=== PATIENT | female | born 1980 | race Caucasian/White ===

== ENCOUNTER 2016-11-29 17:16 | Emergency (ER) | payer OTHER ==
[2016-11-29 17:26] VITALS: PULSE 79; RESP 18; TEMP 98.4; O2SAT 99
--- NOTE | 2016-11-29 18:08 | C.PDOC ---
History Of Present Illness 36 y/o female presents to the ED with complains of bilateral eye irritation after petting a friends dog today. Pt states her eyes became itchy and watery soon after petting the dog, has not had similar symptoms in the past. Denies chest pain, SOB, throat swelling or any other complaints. 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 Chief Complaint (Nursing): Allergic Reaction History Per: Patient History/Exam Limitations: no limitations Onset/Duration Of Symptoms: Hrs Current Symptoms Are (Timing): Still Present Associated Symptoms: Itching Severity: Mild Recent travel outside of the [place]: No Past Medical History Reviewed: Historical Data, Nursing Documentation, Vital Signs Vital Signs: Last Vital Signs Temp 98.4 F 11/29/16 17:21 Pulse 79 11/29/16 17:21 Resp 18 11/29/16 17:21 BP Pulse Ox 99 11/29/16 18:09 Family History: States: Unknown Family Hx - Social History Hx Tobacco Use: No Hx Alcohol Use: Yes Hx Substance Use: No - Immunization History Hx Tetanus Toxoid Vaccination: No Hx Influenza Vaccination: No Hx Pneumococcal Vaccination: No Review Of Systems Except As Marked, All Systems Reviewed And Found Negative. Eyes: Positive for: Other (itchy watery eyes). Negative for: Vision Change ENT: Negative for: Throat Swelling Cardiovascular: Negative for: Chest Pain Respiratory: Negative for: Shortness of Breath Physical Exam - Physical Exam Appears: Non-toxic, No Acute Distress Skin: Warm, Dry, No Rash Head: Atraumatic, Normacephalic Eye(s): bilateral: PERRL, EOMI, Other (minimal redness and tearing) Cardiovascular: Rhythm Regular, No Murmur Respiratory: Normal Breath Sounds, No Accessory Muscle Use, No Rales, No Rhonchi , No Wheezing Extremity: Normal ROM Extremity: Bilateral: Atraumatic Neurological/Psych: Oriented x3, Normal Speech ED Course And Treatment O2 Sat by Pulse Oximetry: 99 (room air) Pulse Ox Interpretation: Normal Disposition - Disposition Referrals: [facility] [Outside] [facility] [Outside] Disposition: HOME/ ROUTINE Disposition Time: 18:10 Condition: GOOD Additional Instructions: Thank you for letting us take care of you today. Your provider was Dr. Acuna. You were treated for allergic reaction. The emergency medical care you received today was directed at your acute symptoms. If you were prescribed any medication, please fill it and take as directed. It may take several days for your symptoms to resolve. Return to the Emergency Department if your symptoms worsen, do not improve, or if you have any other problems. Please contact your doctor or call one of the physicians/clinics you have been referred to that are listed on the Patient Visit Information form that is included in your discharge packet. Bring any paperwork you were given at discharge with you along with any medications you are taking to your follow up visit. Our treatment cannot replace ongoing medical care by a primary care provider (PCP) outside of the emergency department. Thank you for allowing the [email or web address] team to be part of your care today. Follow up in the clinic in 3-4 days for outpatient care. Prescriptions: predniSONE [Prednisone] 40 mg PO DAILY #10 tab Instructions: General Allergic Reaction (ED) - Clinical Impression Clinical Impression: Allergic urticaria - Scribe Statement The provider has reviewed the documentation as recorded by the Tao Aragon Provider Attestation: All medical record entries made by the Tao were at my direction and personally dictated by me. I have reviewed the chart and agree that the record accurately reflects my personal performance of the history, physical exam, medical decision making, and the department course for this patient. I have also personally directed, reviewed, and agree with the discharge instructions and disposition.
== END 2016-11-29 18:03 | disposition home or self-care (01) ==
LOC: C.ER 17:16
DX: L50.0 Allergic urticaria (principal)

== ENCOUNTER 2017-04-09 00:46 | Emergency (ER) | payer SELFPAY ==
[2017-04-09 01:05] VITALS: RESP 20
[2017-04-09] MEDS ORDERED: Sodium Chloride 0.9% 1,000 ML IV ONE (01:26)
[2017-04-09] MEDS ORDERED: Sodium Chloride 0.9% 1,000 ML ONE (01:38)
[2017-04-09 01:40] LABS: BASO # 0.1 K/uL (0.0-0.2); BASO % 0.6 % (0.0-2.0); EOS # 0.2 K/uL (0.0-0.7); EOS % 1.3 % (0.0-4.0); HEMATOCRIT 39.7 % (34.0-47.0); LYMPH # 1.4 K/uL (1.0-4.3); LYMPH % 11.8 % (20.0-40.0); MEAN CELL VOLUME 85.3 fL (81.0-99.0); MEAN CORPUSCULAR HEMOGLOBIN 28.6 pg (27.0-31.0); MEAN CORPUSCULAR HGB CONC 33.5 g/dL (33.0-37.0); MEAN PLATELET VOLUME 8.5 fL (7.2-11.7); MONO # 0.5 K/uL (0.0-0.8); MONO % 4.5 % (0.0-10.0); RED CELL DISTRIBUTION WIDTH 13.8 % (11.5-14.5); WHITE BLOOD COUNT 11.8 K/uL (4.8-10.8)
[2017-04-09 01:43] LABS: URINE BILIRUBIN NEGATIVE (NEGATIVE); URINE BLOOD NEGATIVE (NEGATIVE); URINE COLOR Yellow (YELLOW); URINE GLUCOSE (UA) NORMAL (Normal); URINE KETONE NEGATIVE (NEGATIVE); URINE LEUKOCYTE ESTERASE NEG Leu/uL (Negative); URINE PROTEIN NEGATIVE (NEGATIVE); URINE UROBILINOGEN NORMAL mg/dL (0.2-1.0); WBC URINE 3 /hpf (0-5)
[2017-04-09 01:48] LABS: CHLORIDE 97 mmol/L (98-107); POTASSIUM 3.6 mmol/L (3.6-5.2); SODIUM 135 mmol/L (132-148)
[2017-04-09 01:50] LABS: BILIRUBIN,TOTAL 0.8 mg/dL (0.2-1.3); CARBON DIOXIDE 24 mmol/L (22-30); GFR AFRICAN-AMERICAN > 60
[2017-04-09 01:51] LABS: ALB/GLOB RATIO 1.1 (1.0-2.1); ALKALINE PHOSPHATASE 117 U/L (38-126); ALT/SGPT 105 U/L (9-52); AST/SGOT 56 U/L (14-36); BLOOD UREA NITROGEN 9 mg/dL (7-17); CALCIUM 9.6 mg/dl (8.6-10.4); GLUCOSE,RANDOM 134 mg/dL (65-105); TOTAL PROTEIN 8.1 g/dL (6.3-8.3)
--- NOTE | 2017-04-09 03:29 | C.PDOC ---
History Of Present Illness 37 year old female who presents to the ER with a complaint of diffuse abdominal pain after eating a hotdog at approximately 15:00; associated with several episodes of watery stools, vomiting, subjective fever, or chills. Patient states symptoms began 45 minutes after eating; denies recent travel or sick contact. Time Seen by Provider: 04/09/17 01:25 Chief Complaint (Nursing): Fever History Per: Patient History/Exam Limitations: no limitations Onset/Duration Of Symptoms: Hrs Current Symptoms Are (Timing): Still Present Context: Food Location Of Pain/Discomfort: Diffuse Radiation Of Pain To:: None Quality Of Discomfort: Unable To Describe Associated Symptoms: Fever (Subjective), Chills, Vomiting, Diarrhea (Watery stools) Exacerbating Factors: None Alleviating Factors: None Recent travel outside of the [place]: No Abnormal Vaginal Bleeding: No Past Medical History Reviewed: Historical Data, Nursing Documentation, Vital Signs Vital Signs: Last Vital Signs Temp 98.9 F 04/09/17 03:53 Pulse 82 04/09/17 03:53 Resp 20 04/09/17 03:53 BP 106/64 04/09/17 03:53 Pulse Ox 98 04/09/17 03:53 - Medical History PMH: No Chronic Diseases Surgical History: No Surg Hx Family History: States: No Known Family Hx - Social History Hx Tobacco Use: No Hx Alcohol Use: Yes Hx Substance Use: No - Immunization History Hx Tetanus Toxoid Vaccination: No Hx Influenza Vaccination: No Hx Pneumococcal Vaccination: No Review Of Systems Constitutional: Positive for: Fever (Subjective), Chills Gastrointestinal: Positive for: Vomiting, Abdominal Pain, Diarrhea (Watery stools) Skin: Negative for: Rash Physical Exam - Physical Exam Appears: Non-toxic, No Acute Distress Skin: Normal Color, Warm, Dry Head: Atraumatic, Normacephalic Oral Mucosa: Moist Chest: Symmetrical Cardiovascular: Rhythm Regular Respiratory: Normal Breath Sounds, No Rales, No Rhonchi, No Wheezing Gastrointestinal/Abdominal: Soft, Tenderness (minimally diffuse, more on epigastric, none to RLQ) Back: No CVA Tenderness Neurological/Psych: Oriented x3, Normal Speech, Normal Cognition ED Course And Treatment - Laboratory Results Result Diagrams: 04/09/17 01:36 04/09/17 01:36 O2 Sat by Pulse Oximetry: 97 (Room air) Pulse Ox Interpretation: Normal Progress Note: Blood work and urinalysis ordered. Bentyl, toradol, zofran, and IV fluids administered. Reevaluation Time: 04:01 Reassessment Condition: Improved (Pt improved, sleeping comfortably on stretcher. Abdomen is now soft, nT, pt tolerated PO fluids. Pt instructed to return for severe pain, vomiting or fever.) Disposition Counseled Patient/Family Regarding: Diagnosis, Need For Followup, Rx Given - Disposition Referrals: [facility] [Outside] Disposition: HOME/ ROUTINE Disposition Time: 03:27 Condition: STABLE Additional Instructions: Increase PO fluids Decrease solid foods, milk or all other dairy Return to ER if recurring and severe pain, fever, vomiting or worse Prescriptions: Dicyclomine [Bentyl] 10 mg PO QID #10 cap Instructions: Gastroenteritis (ED) Forms: [facility] (Kenyan), Work Excuse - Clinical Impression Clinical Impression: Gastroenteritis - Scribe Statement The provider has reviewed the documentation as recorded by the Scribe Morgan Luo All medical record entries made by the Scribe were at my direction and personally dictated by me. I have reviewed the chart and agree that the record accurately reflects my personal performance of the history, physical exam, medical decision making, and the department course for this patient. I have also personally directed, reviewed, and agree with the discharge instructions and disposition.
[2017-04-09 03:55] VITALS: BP 106/64; PULSE 82; TEMP 98.9
[2017-04-09 04:35] VITALS: O2SAT 97
== END 2017-04-09 03:55 | disposition home or self-care (01) ==
LOC: C.ER 00:46
DX: K52.9 Noninfective gastroenteritis and colitis, unspecified (principal)
CPT/HCPCS: 80053; 81001; 83690; 84703; 85025; 96361; 96374; 96375; 99285; J1885; J2405; J7040

== ENCOUNTER 2017-09-05 05:15 | Emergency (ER) | payer OTHER ==
[2017-09-05] MEDS ORDERED: Sodium Chloride 0.9% 1,000 ML ONE (05:26)
[2017-09-05] MEDS ORDERED: DiphenhydrAMINE 50 mg/ml Inj ONE (05:26)
[2017-09-05] MEDS ORDERED: DiphenhydrAMINE 50 mg/ml Inj IVP STA (05:28)
[2017-09-05] MEDS ORDERED: Sodium Chloride 0.9% 1,000 ML IV ONE ×2 (05:29)
--- NOTE | 2017-09-05 05:30 | C.PDOC ---
History Of Present Illness Patient is a 37 y/o female who presents to the ED with a complaint of diffuse hives upon awakening. Patient reports hives cover abdomen, torso, and arms. Patient is speaking in complete sentences. No other physical complaints at this time. 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) Current Symptoms Are (Timing): Still Present Associated Symptoms: Skin Rash Severity: Moderate Pain Scale Rating Of: 4 Recent travel outside of the [place]: No Past Medical History Reviewed: Historical Data, Nursing Documentation, Vital Signs Vital Signs: Last Vital Signs Temp 97.5 F L 09/05/17 05:23 Pulse 71 09/05/17 06:32 Resp 18 09/05/17 06:32 BP 100/66 09/05/17 06:32 Pulse Ox 97 09/05/17 06:32 - Medical History PMH: No Chronic Diseases Surgical History: No Surg Hx Family History: States: No Known Family Hx - Social History Hx Tobacco Use: No Hx Alcohol Use: Yes Hx Substance Use: No - Immunization History Hx Tetanus Toxoid Vaccination: No Hx Influenza Vaccination: No Hx Pneumococcal Vaccination: No Review Of Systems Skin: Positive for: Rash (diffuse ) Physical Exam - Physical Exam Appears: Well, Non-toxic Skin: Other (diffuse rash across abdomen, arms, and torso of unknown etiology) Head: Normacephalic Eye(s): bilateral: Normal Inspection, PERRL, EOMI Oral Mucosa: Moist, No Drooling Chest: Symmetrical Cardiovascular: Rhythm Regular, No Murmur Respiratory: Normal Breath Sounds, No Rales, No Rhonchi, No Wheezing Extremity: Normal ROM (full range ) Neurological/Psych: Oriented x3, Other (no focal deficits) ED Course And Treatment ECG: Interpreted By Me, Viewed By Me ECG Rhythm: Sinus Rhythm (82), Nonspecific Changes O2 Sat by Pulse Oximetry: 96 Pulse Ox Interpretation: Normal Progress Note: EKG ordered. Benadryl, pepcid, and IV fluids administered. 6:38 AM feels better, urticaria is almost gone. lungs cta Disposition Counseled Patient/Family Regarding: Studies Performed, Diagnosis, Need For Followup - Disposition Referrals: [facility] [Outside] [facility] [Outside] Disposition Time: 05:28 Condition: FAIR Instructions: Bari (DC) Forms: [facility] [facility] (Chinese) - Clinical Impression Clinical Impression: Allergic reaction - Scribe Statement The provider has reviewed the documentation as recorded by the Scribe Joseline Lepe All medical record entries made by the Scribe were at my direction and personally dictated by me. I have reviewed the chart and agree that the record accurately reflects my personal performance of the history, physical exam, medical decision making, and the department course for this patient. I have also personally directed, reviewed, and agree with the discharge instructions and disposition. Physician Patient Turnover Patient Signed Over To: Di Guy Handoff Comments: pending re-eval and dispostion
[2017-09-05 06:33] VITALS: RESP 18
[2017-09-05 08:14] VITALS: BP 104/68; PULSE 79; TEMP 98; O2SAT 97
--- NOTE | 2017-09-06 21:19 | CARD ---
APPROVED REPORT EKG Measurement Heart [id number] <Conclusion> Normal sinus rhythm Normal ECG
== END 2017-09-05 08:18 | disposition home or self-care (01) ==
LOC: C.ER 05:15
DX: T78.49XA Other allergy, initial encounter (principal); X58.XXXA Exposure to other specified factors, initial encounter
CPT/HCPCS: 93005; 96361; 96374; 96375; 99285; J1200; J2930; J7040

== ENCOUNTER 2017-09-05 18:45 | Emergency (ER) | payer OTHER ==
[2017-09-05 18:53] VITALS: BMI 45.0
[2017-09-05] MEDS ORDERED: Sodium Chloride 0.9% 1,000 ML IV STA ×2 (19:45→19:46)
[2017-09-05] MEDS ORDERED: DiphenhydrAMINE 50 mg/ml Inj IVP STA (19:45)
[2017-09-05] MEDS ORDERED: DiphenhydrAMINE 50 mg/ml Inj ONE (20:10)
--- NOTE | 2017-09-05 21:01 | C.PDOC ---
History Of Present Illness <Chintan Bennett - Last Filed: 09/05/17 21:05> <Barbara Orozco - Last Filed: 09/06/17 02:10> 37 year old female who was seen in the ER earlier today at 04:00 for an allergic reaction presents to the ER with worsening urticaria and itchiness to her throat. When patient was seen initially earlier today she was given IV medications with improvement of her symptoms, she was discharge home on Benadryl , Pepcid, and Prednisone. Since being discharged, patient has taken one Prednisone and Benadryl, however, she reports the rash has worsened and now feels an itchiness to her throat. Denies lip swelling, tongue swelling, difficulty breathing, or difficulty swallowing. (Barbara Orozco) <Chintan Bennett - Last Filed: 09/05/17 21:05> History Per: Patient History/Exam Limitations: no limitations Onset/Duration Of Symptoms: Hrs Current Symptoms Are (Timing): Still Present Possible Cause: Unknown Associated Symptoms: Skin Rash, Itching (Throat). denies: Swelling, Dyspnea, Trouble Swallowing Home/EMS Treatment: Benadryl, Other (Prednisone) Recent travel outside of the [place]: No <Barbara Orozco - Last Filed: 09/06/17 02:10> Time Seen by Provider: 09/05/17 19:33 Chief Complaint (Nursing): Allergic Reaction Past Medical History Reviewed: Historical Data, Nursing Documentation, Vital Signs Family History: States: Unknown Family Hx - Social History Hx Tobacco Use: No Hx Alcohol Use: Yes Hx Substance Use: No - Immunization History Hx Tetanus Toxoid Vaccination: No Hx Influenza Vaccination: No Hx Pneumococcal Vaccination: No <Barbara Orozco - Last Filed: 09/06/17 02:10> Vital Signs: Last Vital Signs Temp 98.3 F 09/05/17 21:24 Pulse 86 09/05/17 21:24 Resp 20 09/05/17 21:24 BP 105/61 09/05/17 21:24 Pulse Ox 96 09/05/17 23:49 Review Of Systems Constitutional: Negative for: Fever, Chills ENT: Positive for: Other (Throat itching). Negative for: Mouth Swelling, Throat Swelling Respiratory: Negative for: Cough, Shortness of Breath, Wheezing Skin: Positive for: Rash <Barbara Orozco - Last Filed: 09/06/17 02:10> Physical Exam - Physical Exam Appears: Non-toxic Skin: Warm, Dry, Rash (Diffuse urticaria mostly to trunk) Head: Atraumatic, Normacephalic Eye(s): left: Normal Inspection Ear(s): Bilateral: Normal Nose: Normal Oral Mucosa: Moist Tongue: Normal Appearing, No Swelling Lips: Normal Appearing, No Swelling Throat: Normal, No Erythema, Other (airway patent) Neck: Normal, Supple Chest: Symmetrical, No Tenderness Cardiovascular: Rhythm Regular Respiratory: Normal Breath Sounds, No Accessory Muscle Use, No Stridor, No Wheezing Gastrointestinal/Abdominal: Soft, No Tenderness Neurological/Psych: Oriented x3, Normal Speech <Barbara Orozco Last Filed: 09/06/17 02:10> ED Course And Treatment Pulse Ox Interpretation: Normal Progress Note: signed over @ 1999, receieved IVF, pepcid, benadryl, solumdrol IV. observed and multiple bedside re-visits with steady improvement,. normal voice, normal OP without edema, urticaria resolving, pt sleeping comfortably, no airway compromise. Reevaluation Time: 21:06 Reassessment Condition: Improved <Chintan Bennett - Last Filed: 09/05/17 21:05> O2 Sat by Pulse Oximetry: 96 (Room air) Progress Note: IV fluids, benadryl, pepcid, solumedrol, and prednisone administered. On reevaluation, patient reports improvement of symptoms, she is resting comfortably in the ER with no rash and clear breath sounds, will discharge home with Rx and instructions to follow up with PMD. Patient was seen and evaluated in the ER by Dr. Bennett who agrees with plan. Reassessment Condition: Improved <Barbara Orozco - Last Filed: 09/06/17 02:10> Medical Decision Making: allergic urticaria unresolved from yesterday, now re-treated and improved again. extensive discussion to attempt to discover home allergen without success. ( Chintan Bennett) Disposition Doctor Will See Patient In The: Office Counseled Patient/Family Regarding: Studies Performed, Diagnosis - Disposition Disposition Time: 21:07 <Chintan Bennett - Last Filed: 09/05/17 21:05> <Barbara Orozco Last Filed: 09/06/17 02:10> - Disposition Referrals: [facility] [Outside] Disposition: HOME/ ROUTINE Condition: GOOD Additional Instructions: sigue Medrol Dose Pack- esteroides bajando en dosis poco a poco Pepcid 20 mg en la noche para prevenir irritacion' del estomago debido a los esteroides Joanne la causa allergica en calles casa- ? pescados, camarones, jabones de ropa, parfumes, etc. Regressa si las sintoma se empeoran. 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 - Scribe Statement The provider has reviewed the documentation as recorded by the Scribe <Barbara Orozco - Last Filed: 09/06/17 02:10> - Scribe Statement Morgan Luo All medical record entries made by the Scribe were at my direction and personally dictated by me. I have reviewed the chart and agree that the record accurately reflects my personal performance of the history, physical exam, medical decision making, and the department course for this patient. I have also personally directed, reviewed, and agree with the discharge instructions and disposition. (Barbara Orozco)
[2017-09-05 21:24] VITALS: BP 105/61; PULSE 86; RESP 20; TEMP 98.3
[2017-09-05 23:42] VITALS: O2SAT 96
== END 2017-09-05 21:37 | disposition home or self-care (01) ==
LOC: C.ER 18:45
DX: L50.0 Allergic urticaria (principal)
CPT/HCPCS: 96361; 96374; 96375; 99285; J1200; J2930; J7040